=== PATIENT | male | born 1995 | race Caucasian/White ===

== ENCOUNTER 2019-10-12 19:14 | Emergency (ER) | payer SELFPAY ==
[~2019-10-12] VITALS: Ht 172.7 cm; Wt 83.0 kg
--- NOTE | 2019-10-12 19:25 | NUR ---
PT CALLED IN LOBBY AND OUTSIDE WITH NO ANSWER
[2019-10-12 19:53] VITALS: BP 147/86
--- NOTE | 2019-10-12 20:00 | NUR ---
PT AMBULATED TO LOBBY
--- NOTE | 2019-10-12 20:52 | NUR ---
PT AMBULATED TO CHAIR B WITH FAMILY MEMBER
--- NOTE | 2019-10-12 21:12 | NUR ---
Pt was discharged by Dr Mejia before I assessed patient
[2019-10-12 21:13] VITALS: BP 147/86
--- NOTE | 2019-10-12 21:13 | NUR ---
Patient discharged by Dr Mejia with last VS stable per Dr Mejia. Written and verbal after care instructions given and explained by Dr Mejia. Patient verbalized understanding. Ambulatory with steady gait. All questions addressed prior to discharge by Dr Mejia. Advised to follow up with PMD by Dr Mejia.
== END 2019-10-12 21:13 | disposition home or self-care (01) ==
LOC: EDBD 19:14 → MED 19:14
DX: R00.2 Palpitations (principal); F15.10 Other stimulant abuse, uncomplicated; Z13.9 Encounter for screening, unspecified
CPT/HCPCS: 99281